=== PATIENT | male | born 1990 | race Caucasian/White ===

== ENCOUNTER 2020-04-20 01:23 | Emergency (ER) | payer OTHER ==
[~2020-04-20] VITALS: Ht 182.9 cm; Wt 81.6 kg
[2020-04-20 01:25] VITALS: BP 121/78; Ht 182.9 cm; Wt 81.6 kg
== END 2020-04-20 02:26 | disposition other institution (70) ==
LOC: EDBD 01:23 → ED 01:23
DX: S00.03XA Contusion of scalp, initial encounter (principal); W22.8XXA Striking against or struck by other objects, initial encounter; Y93.89 Activity, other specified; Y92.89 Other specified places as the place of occurrence of the external cause; Y99.8 Other external cause status

== ENCOUNTER 2020-04-20 01:23 | Emergency (ER) | payer OTHER | END 2020-04-20 02:26 | disposition other institution (70) | LOC: ED 01:23 | DX: Z02.89 Encounter for other administrative examinations (principal) ==